=== PATIENT | female | born 1985 ===

== ENCOUNTER 2016-05-25 18:38 | Emergency (ER) | payer BC ==
--- NOTE | 2016-05-25 20:15 | UC ---
Ear Complaint HPI - HPI Summary HPI Summary: 30 yo female with acute right ear hearing loss after shower no pain - History of Current Complaint Chief Complaint: UCEar Stated Complaint: LOSS OF HEARING RT EAR Time Seen by Provider: 05/25/16 19:53 Hx Obtained From: Patient Onset/Duration: Sudden Onset Severity Initially: Moderate Severity Currently: Moderate Pain Intensity: 0 Pain Scale Used: 0-10 Numeric Aggravating Factors: Nothing Alleviating Factors: Nothing Associated Signs/Symptoms: Positive: Hearing Loss - Allergies/Home Medications Allergies/Adverse Reactions: Allergies Allergy/AdvReac Type Severity Reaction Status Date / Time No Known Allergies Allergy Verified 05/25/16 18:47 Home Medications: Home Medications NK [No Home Medications Reported] 05/25/16 [History Confirmed 05/25/16] PMH/Surg Hx/FS Hx/Imm Hx Previously Healthy: Yes - Surgical History Surgical History: Yes Surgery Procedure, Year, and Place: T&A. Ganglion cyst removed from left wrist. Birthmark removed from right cheek. - Family History Known Family History: Positive: Hypertension Negative: Cardiac Disease, Diabetes - Social History Alcohol Use: None Substance Use Type: None Smoking Status (MU): Never Smoked Tobacco Review of Systems Constitutional: Negative Skin: Negative Eyes: Negative ENT: Other - right hearing loss Respiratory: Negative Cardiovascular: Negative Gastrointestinal: Negative Genitourinary: Negative Motor: Negative Neurovascular: Negative Musculoskeletal: Negative Neurological: Negative Psychological: Negative All Other Systems Reviewed And Are Negative: Yes Physical Exam Triage Information Reviewed: Yes Appearance: Well-Appearing, No Pain Distress, Well-Nourished Vital Signs: Initial Vital Signs Temp 99.0 F 05/25/16 18:42 Pulse 77 05/25/16 18:42 Resp 14 05/25/16 18:42 BP 128/67 05/25/16 18:42 Pulse Ox 100 05/25/16 18:42 Vital Signs Reviewed: Yes Eyes: Positive: Conjunctiva Clear ENT: Positive: TMs normal - left normal/right unable to vis due to cerumen. Negative: Hearing grossly normal, Nasal congestion, Tonsillar swelling, Tonsillar exudate, Trismus, Muffled/hoarse voice Dental: Negative: Gross Decay/Caries @, Dental Fracture @ Neck: Positive: Supple, Nontender, No Lymphadenopathy Respiratory: Positive: Lungs clear, Normal breath sounds, No respiratory distress, No accessory muscle use Cardiovascular: Positive: RRR, No Murmur Musculoskeletal: Positive: ROM Intact, No Edema Neurological: Positive: Alert Psychological Exam: Normal Skin Exam: Normal Ear Complaint Course/Dx - Differential Dx/Diagnosis Provider Diagnoses: right cerumen impaction Discharge - Discharge Plan Condition: Stable Disposition: HOME Patient Education Materials: Cerumen Impaction (ED) Additional Instructions: call for any questions return for any problems
== END 2016-05-25 20:14 | disposition home or self-care (01) ==
LOC: UCCORT 18:38
DX: H61.21 Impacted cerumen, right ear (principal)
CPT/HCPCS: 99202; G0463